=== PATIENT | male | born 1965 ===

== ENCOUNTER 2018-06-05 08:47 | Outpatient (CLI) | payer OTHER ==
[~2018-06-05] VITALS: Ht 177.8 cm; Wt 90.7 kg
[2018-06-05] MEDS ORDERED: FLONASE16 GM NASAL (11:36)
[2018-06-05] MEDS ORDERED: ZANTAC300 MG PO (11:36)
== END 2018-06-05 09:00 | disposition home or self-care (01) ==
LOC: OFIC 805 08:47
DX: J31.0 Chronic rhinitis (principal); J37.0 Chronic laryngitis; J38.1 Polyp of vocal cord and larynx

== ENCOUNTER 2018-06-11 10:30 | Outpatient (CLI) | payer OTHER ==
[~2018-06-11] VITALS: Ht 152.4 cm; Wt 90.7 kg
[~2018-06-11 10:30] MED LIST: FLONASE16 GM NASAL; ZANTAC300 MG PO
== END 2018-06-11 10:45 | disposition home or self-care (01) ==
LOC: OFIC 805 10:30
DX: J37.0 Chronic laryngitis (principal); J38.1 Polyp of vocal cord and larynx; J31.0 Chronic rhinitis

== ENCOUNTER 2018-08-08 12:06 | Outpatient (CLI) | payer OTHER ==
[~2018-08-08] VITALS: Ht 152.4 cm; Wt 90.7 kg
== END 2018-08-08 12:20 | disposition home or self-care (01) ==
LOC: OFIC 805 12:06
DX: J38.1 Polyp of vocal cord and larynx (principal); R49.0 Dysphonia

== ENCOUNTER 2018-09-02 14:21 | Outpatient (CLI) | payer OTHER ==
[~2018-09-02] VITALS: Ht 152.4 cm; Wt 90.7 kg
== END 2018-09-02 14:45 | disposition home or self-care (01) ==
LOC: OFIC 805 14:21
DX: J38.1 Polyp of vocal cord and larynx (principal); R49.0 Dysphonia

== ENCOUNTER 2020-07-27 14:27 | Outpatient (CLI) | payer OTHER | END 2020-07-27 15:30 | disposition home or self-care (01) | LOC: OFIC 805 14:27 | PROVIDERS: ATTEND Otolaryngology Otology & Neurotology | DX: J31.0 Chronic rhinitis (principal); J37.0 Chronic laryngitis; J38.1 Polyp of vocal cord and larynx; R49.0 Dysphonia; G47.33 Obstructive sleep apnea (adult) (pediatric) ==